=== PATIENT | male | born 1965 | race Caucasian/White ===

== ENCOUNTER → 2016-12-07 | Outpatient (REF) | payer MEDICARE ==
[~2016-12-07] MED LIST: /ESOM40CA PO; /INSULEV SC; /LINE60TA PO; ADVAIR200 INHALATION; ALBUTEROL INHALATION; ASPI81TA85 PO; ATEN50TA2 PO; ATENOLOL50 PO; ATRIPLA; ATRIPLA PO; AVANDIA4 PO; AVANDIA8 PO; CAHNTIXC PO; CHAN0.5P PO; GEMF600T; GLUC; GLUC1TOUCH TOPICAL; GLUCCOSEAC TOPICAL; GLUCOVAN PO; GLUCOVANCE; GLUCULTRA TOPICAL; INSUDET SC; INSULANT; INSULIN; JANUVIA; JANUVIA100 PO; JANUVIA50 PO; LIPI80TA PO; LIPITOR10 PO; LIPITOR40 PO; LISI10TA4; LISI5TAB PO; LISINOPR10 PO; LISINOPR20 PO; LORTAB5 PO; LOVA1CAP16 PO; LOVAZA; LOVAZA PO; MAGN400C2 PO; MOBI15TA PO; MULTIVIT PO; NEXIUM40 PO; NITR0.4S SL; NITROSTAT4 SL; NOVO70VL SC; OMACOR PO; OMEPRAZ20 PO; OSCAL PO; OXYC-208 PO; OXYC10TA12; OXYC30TA84 PO; OXYCON10 PO; OYST500T PO; PLAV75TA2 PO; PLAVIX75 PO; PROTONIX40 PO; PROVIGIL2 PO; RELAFEN PO; SITA50TAB PO; SUSTIVA PO; THERGRAN PO; TRUVTAB5 PO; VICODIN PO; VICODIN7.5 PO; VITA500047 PO; [UNRECOGNIZED DRUG - OTHER]
[2016-12-07 15:58] LABS: ALBUMIN 4.2 GM/DL (3.2-5.2); ALBUMIN/GLOBULIN RATIO 1.14 (1.00-1.93); ALKALINE PHOSPHATASE 144 U/L (45-117); ALT/SGPT 34 U/L (12-78); ANION GAP 10 MEQ/L (8-16); AST/SGOT 30 U/L (15-37); BILIRUBIN,TOTAL 0.4 MG/DL (0.2-1.0); BLOOD UREA NITROGEN 7 MG/DL (7-18); CALCIUM LEVEL 9.2 MG/DL (8.5-10.1); CARBON DIOXIDE LEVEL 29 MEQ/L (21-32); CHLORIDE LEVEL 98 MEQ/L (98-107); CHOLESTEROL LEVEL 182 MG/DL (<200); CREATININE FOR GFR 0.89 MG/DL (0.70-1.30); GLOMERULAR FILTRATION RATE > 60.0 (>56); GLUCOSE, FASTING 205 MG/DL (70-105); POTASSIUM SERUM 4.1 MEQ/L (3.5-5.1); SODIUM LEVEL 137 MEQ/L (136-145); TOTAL PROTEIN 7.9 GM/DL (6.4-8.2); TRIGLYCERIDES LEVEL 481 MG/DL (<150)
[2016-12-14 14:11] LABS: %CD3+CD4+CD8+ 1.5 % (Not Estab.); %CD3+CD4+CD8- 36.3 % (Not Estab.); %CD3+CD4-CD8+ 37.5 % (Not Estab.); %CD3+CD4-CD8- 0.7 % (Not Estab.); ABS CD3+CD4+CD8+ 42 /uL (Not Estab.); ABS CD3+CD4+CD8- 1016 /uL (Not Estab.); ABS CD3+CD4-CD8+ 1050 /uL (Not Estab.); ABS CD3+CD4-CD8- 20 /uL (Not Estab.); CD4/CD8 NYSDOH RATIO 0.97 (Not Estab.); Eosinophils 1 % (.); HCT 49.6 % (37.5-51.0); HGB 17.5 g/dL (12.6-17.7); HLA B5701-1 Negative (.); Monocytes 5 % (.); Neutrophils 63 % (.); WBC 9.2 x10E3/uL (3.4-10.8)
== END ==
LOC: M SFHCPLAZ 13:09
PROVIDERS: ATTEND Internal Medicine Infectious Disease
DX: B20 Human immunodeficiency virus [HIV] disease (principal); E08.36 Diabetes mellitus due to underlying condition with diabetic cataract; E78.2 Mixed hyperlipidemia
CPT/HCPCS: 36415; 80053; 80061; 81001; 81381; 82043; 83036; 86360; 86780; 87491; 87536; 87591; G0463

== ENCOUNTER → 2017-04-06 | Outpatient (REF) | payer MEDICARE, MEDICAID ==
[2017-04-06 18:20] LABS: ALBUMIN 4.4 GM/DL (3.2-5.2); ALBUMIN/GLOBULIN RATIO 1.26 (1.00-1.93); ALKALINE PHOSPHATASE 92 U/L (45-117); ALT/SGPT 51 U/L (12-78); ANION GAP 5 MEQ/L (8-16); AST/SGOT 38 U/L (15-37); BILIRUBIN,TOTAL 0.6 MG/DL (0.2-1.0); BLOOD UREA NITROGEN 12 MG/DL (7-18); CALCIUM LEVEL 9.4 MG/DL (8.5-10.1); CARBON DIOXIDE LEVEL 32 MEQ/L (21-32); CHLORIDE LEVEL 96 MEQ/L (98-107); CHOLESTEROL LEVEL 163 MG/DL (<200); CREATININE FOR GFR 0.89 MG/DL (0.70-1.30); GLOMERULAR FILTRATION RATE > 60.0 (>56); GLUCOSE, FASTING 274 MG/DL (70-105); POTASSIUM SERUM 4.2 MEQ/L (3.5-5.1); SODIUM LEVEL 133 MEQ/L (136-145); TOTAL PROTEIN 7.9 GM/DL (6.4-8.2); TRIGLYCERIDES LEVEL 228 MG/DL (<150)
[2017-04-10 00:06] LABS: %CD3+CD4+CD8+ 2.3 % (Not Estab.); %CD3+CD4+CD8- 35.8 % (Not Estab.); %CD3+CD4-CD8+ 37.6 % (Not Estab.); %CD3+CD4-CD8- 0.9 % (Not Estab.); ABS CD3+CD4+CD8+ 48 /uL (Not Estab.); ABS CD3+CD4+CD8- 752 /uL (Not Estab.); ABS CD3+CD4-CD8+ 790 /uL (Not Estab.); ABS CD3+CD4-CD8- 19 /uL (Not Estab.); CD4/CD8 NYSDOH RATIO 0.95 (Not Estab.); Eosinophils 2 % (.); HGB 16.4 g/dL (12.6-17.7); Monocytes 6 % (.); Neutrophils 68 % (.); WBC 8.8 x10E3/uL (3.4-10.8)
== END ==
LOC: M SFHCPLAZ 13:02
PROVIDERS: ATTEND Internal Medicine Infectious Disease
DX: B20 Human immunodeficiency virus [HIV] disease (principal); E78.2 Mixed hyperlipidemia; Z72.0 Tobacco use; E11.9 Type 2 diabetes mellitus without complications
CPT/HCPCS: 80053; 80061; 83036; 86360; 87536; G0463

== ENCOUNTER → 2017-08-05 | Outpatient (REF) | payer MEDICARE ==
[2017-08-05 16:25] LABS: ALBUMIN 4.4 GM/DL (3.2-5.2); ALBUMIN/GLOBULIN RATIO 1.33 (1.00-1.93); ALKALINE PHOSPHATASE 62 U/L (45-117); ALT/SGPT 55 U/L (12-78); ANION GAP 10 MEQ/L (8-16); AST/SGOT 37 U/L (15-37); BILIRUBIN,TOTAL 0.5 MG/DL (0.2-1.0); BLOOD UREA NITROGEN 19 MG/DL (7-18); CALCIUM LEVEL 9.4 MG/DL (8.5-10.1); CARBON DIOXIDE LEVEL 27 MEQ/L (21-32); CHLORIDE LEVEL 96 MEQ/L (98-107); CHOLESTEROL LEVEL 170 MG/DL (<200); CREATININE FOR GFR 1.23 MG/DL (0.70-1.30); GLOMERULAR FILTRATION RATE > 60.0 (>56); GLUCOSE, FASTING 298 MG/DL (70-105); POTASSIUM SERUM 4.4 MEQ/L (3.5-5.1); SODIUM LEVEL 133 MEQ/L (136-145); TOTAL PROTEIN 7.7 GM/DL (6.4-8.2); TRIGLYCERIDES LEVEL 329 MG/DL (<150)
[2017-08-11 00:06] LABS: Eosinophils 2 % (Not Estab.); HCT 46.3 % (37.5-51.0); HGB 16.2 g/dL (12.6-17.7); Monocytes 6 % (Not Estab.); Neutrophils 63 % (Not Estab.); WBC 9.5 x10E3/uL (3.4-10.8)
== END ==
LOC: M SFHCPLAZ 13:59
PROVIDERS: ATTEND Internal Medicine Infectious Disease
DX: B20 Human immunodeficiency virus [HIV] disease (principal); E78.2 Mixed hyperlipidemia; E08.36 Diabetes mellitus due to underlying condition with diabetic cataract
CPT/HCPCS: 36415; 80053; 80061; 83036; 86360; 86803; 87536; 90686; G0008; G0463

== ENCOUNTER → 2017-12-09 | Outpatient (REF) | payer MEDICARE ==
[2017-12-09 16:08] LABS: APPEARANCE, URINE CLEAR (CLEAR); BACTERIA, URINE AUTO NEGATIVE (NEGATIVE); BILIRUBIN, URINE AUTO NEGATIVE (NEGATIVE); BLOOD, URINE BLOOD NEGATIVE (NEGATIVE); COLOR, URINE YELLOW (YELLOW); GLUCOSE, URINE (UA) AUTO 3+ mg/dL (NEGATIVE); KETONE, URINE AUTO NEGATIVE (NEGATIVE); LEUKOCYTE ESTERASE, URINE AUTO NEGATIVE (NEGATIVE); NITRITE, URINE AUTO NEGATIVE (NEGATIVE); PROTEIN, URINE AUTO NEGATIVE (NEGATIVE); RBC, URINE AUTO 0 /HPF (0-3); SPECIFIC GRAVITY URINE AUTO 1.032 (1.002-1.035); SQUAMOUS EPITHELIAL CELL UR AU 0 /HPF (0-6); UROBILINOGEN, URINE AUTO 0.2 mg/dL (0.0-2.0); WBC, URINE AUTO 0 /HPF (0-3)
[2017-12-09 16:26] LABS: ALBUMIN 4.3 GM/DL (3.2-5.2); ALBUMIN/GLOBULIN RATIO 1.26 (1.00-1.93); ALKALINE PHOSPHATASE 62 U/L (45-117); ALT/SGPT 53 U/L (12-78); ANION GAP 6 MEQ/L (8-16); AST/SGOT 46 U/L (7-37); BILIRUBIN,TOTAL 0.5 MG/DL (0.2-1.0); BLOOD UREA NITROGEN 13 MG/DL (7-18); CALCIUM LEVEL 9.5 MG/DL (8.5-10.1); CARBON DIOXIDE LEVEL 29 MEQ/L (21-32); CHLORIDE LEVEL 98 MEQ/L (98-107); CHOLESTEROL LEVEL 174 MG/DL (<200); CHOLESTEROL RISK RATIO 4.833 (<5); CREATININE FOR GFR 1.32 MG/DL (0.70-1.30); GLOMERULAR FILTRATION RATE > 60.0 (>56); GLUCOSE, FASTING 267 MG/DL (70-100); HDL CHOLESTEROL 36 MG/DL (>40); NON-HDL-C 138 MG/DL; POTASSIUM SERUM 4.7 MEQ/L (3.5-5.1); SODIUM LEVEL 133 MEQ/L (136-145); TOTAL PROTEIN 7.7 GM/DL (6.4-8.2); TRIGLYCERIDES LEVEL 469 MG/DL (<150)
[2017-12-09 16:32] LABS: ESTIMATED AVERAGE GLUCOSE 220 MG/DL (60-110); HEMOGLOBIN A1c 9.3 %
[2017-12-09 18:00] LABS: CHLAMYDIA DNA AMPLIFICATION NEGATIVE (NEGATIVE); GC DNA AMPLIFICATION NEGATIVE (NEGATIVE)
[2017-12-11 14:13] LABS: % CD8 Pos Lymph 41.1 % (12.0-35.5); %CD4 Pos Lymphs 36.4 % (30.8-58.5); ABS Eosinophils 0.2 x10E3/uL (0.0-0.4); ABS Lymphs 2.8 x10E3/uL (0.7-3.1); ABS Monocytes 0.7 x10E3/uL (0.1-0.9); ABS Neutophils 5.6 x10E3/uL (1.4-7.0); Abs CD4 Helper 1019 /uL (359-1519); Abs CD8 Suppres 1151 /uL (109-897); CD4/CD8 Ratio 0.89 (0.92-3.72); Eosinophils 2 % (Not Estab.); HCT 47.4 % (37.5-51.0); HGB 16.4 g/dL (13.0-17.7); Immature Grans 0 % (Not Estab.); Lymphocytes 30 % (Not Estab.); MCH 30.3 pg (26.6-33.0); MCHC 34.6 g/dL (31.5-35.7); MCV 88 fL (79-97); Monocytes 7 % (Not Estab.); Neutrophils 61 % (Not Estab.); Platelets 207 x10E3/uL (150-379); QUANTIFERON GOLD TB Negative (Negative); RBC 5.42 x10E6/uL (4.14-5.80); RDW 13.7 % (12.3-15.4); TB Test (QFT) Antigen 0.04 IU/mL (.); TB Test (QFT) Antigen Minus Ni 0.01 IU/mL (.); TB Test (QFT) Mitogen 7.07 IU/mL (.); TB Test (QFT) Nil 0.03 IU/mL (.); WBC 9.3 x10E3/uL (3.4-10.8)
[2017-12-14 14:14] LABS: HIV-1 RNA PCR QUANT 2 LC550285 <20 copies/mL (.)
== END ==
LOC: M SFHCPLAZ 14:00
DX: B20 Human immunodeficiency virus [HIV] disease (principal); E08.36 Diabetes mellitus due to underlying condition with diabetic cataract; E11.36 Type 2 diabetes mellitus with diabetic cataract; E78.2 Mixed hyperlipidemia; I25.119 Atherosclerotic heart disease of native coronary artery with unspecified angina pectoris; M72.0 Palmar fascial fibromatosis [Dupuytren]; Z23 Encounter for immunization; Z72.0 Tobacco use
CPT/HCPCS: 80053

== ENCOUNTER → 2018-03-28 | Outpatient (REF) | payer MEDICARE ==
[2018-03-28 16:09] LABS: ANION GAP 7 MEQ/L (8-16); BLOOD UREA NITROGEN 21 MG/DL (7-18); CALCIUM LEVEL 8.7 MG/DL (8.5-10.1); CARBON DIOXIDE LEVEL 29 MEQ/L (21-32); CHLORIDE LEVEL 103 MEQ/L (98-107); CREATININE FOR GFR 1.27 MG/DL (0.70-1.30); GLOMERULAR FILTRATION RATE > 60.0 (>56); GLUCOSE, FASTING 246 MG/DL (70-100); POTASSIUM SERUM 4.8 MEQ/L (3.5-5.1); SODIUM LEVEL 139 MEQ/L (136-145)
[2018-03-28 16:28] LABS: ESTIMATED AVERAGE GLUCOSE 192 MG/DL (60-110); HEMOGLOBIN A1c 8.3 %
[2018-03-28 19:05] LABS: CREATININE, URINE 75.7 MG/DL; MALB URINE SIEMENS 12.8 MG/L; MAU/CREAT RATIO 16.9 MCG/MG (0.0-30.0)
== END ==
LOC: M LABDRAWP 15:46
DX: E11.9 Type 2 diabetes mellitus without complications (principal)
CPT/HCPCS: 83036

== ENCOUNTER → 2018-07-21 | Outpatient (REF) | payer MEDICARE ==
[2018-07-21 16:29] LABS: ESTIMATED AVERAGE GLUCOSE 214 MG/DL (60-110); HEMOGLOBIN A1c 9.1 %
[2018-07-21 16:36] LABS: ALBUMIN 4.7 GM/DL (3.2-5.2); ALBUMIN/GLOBULIN RATIO 1.42 (1.00-1.93); ALKALINE PHOSPHATASE 58 U/L (45-117); ALT/SGPT 63 U/L (12-78); ANION GAP 8 MEQ/L (8-16); AST/SGOT 65 U/L (7-37); BILIRUBIN,TOTAL 0.5 MG/DL (0.2-1.0); BLOOD UREA NITROGEN 20 MG/DL (7-18); CALCIUM LEVEL 9.8 MG/DL (8.5-10.1); CARBON DIOXIDE LEVEL 28 MEQ/L (21-32); CHLORIDE LEVEL 97 MEQ/L (98-107); CHOLESTEROL LEVEL 186 MG/DL (<200); CHOLESTEROL RISK RATIO 4.043 (<5); CREATININE FOR GFR 1.25 MG/DL (0.70-1.30); GLOMERULAR FILTRATION RATE > 60.0 (>56); GLUCOSE, FASTING 300 MG/DL (70-100); HDL CHOLESTEROL 46 MG/DL (>40); LDL CHOLESTEROL 97 MG/DL (<100); NON-HDL-C 140 MG/DL; POTASSIUM SERUM 4.9 MEQ/L (3.5-5.1); SODIUM LEVEL 133 MEQ/L (136-145); TRIGLYCERIDES LEVEL 216 MG/DL (<150)
[2018-07-27 00:12] LABS: % CD8 Pos Lymph 45.1 % (12.0-35.5); %CD4 Pos Lymphs 33.1 % (30.8-58.5); ABS Basophils 0.1 x10E3/uL (0.0-0.2); ABS Eosinophils 0.2 x10E3/uL (0.0-0.4); ABS Lymphs 2.7 x10E3/uL (0.7-3.1); ABS Monocytes 0.5 x10E3/uL (0.1-0.9); ABS Neutophils 4.1 x10E3/uL (1.4-7.0); Abs CD4 Helper 894 /uL (359-1519); Abs CD8 Suppres 1218 /uL (109-897); CD4/CD8 Ratio 0.73 (0.92-3.72); Eosinophils 3 % (Not Estab.); HCT 45.4 % (37.5-51.0); HGB 14.9 g/dL (13.0-17.7); HIV-1 RNA PCR QUANT 2 LC550285 <20 copies/mL (.); Immature Grans 0 % (Not Estab.); Lyme Disease IgG/IgM Antibodie <0.91 ISR (0.00-0.90); Lyme Disease IgM Ab Quantitati <0.80 index (0.00-0.79); Lymphocytes 35 % (Not Estab.); MCH 30.5 pg (26.6-33.0); MCHC 32.8 g/dL (31.5-35.7); MCV 93 fL (79-97); Monocytes 7 % (Not Estab.); Neutrophils 54 % (Not Estab.); Platelets 240 x10E3/uL (150-379); RBC 4.88 x10E6/uL (4.14-5.80); RDW 13.1 % (12.3-15.4); WBC 7.5 x10E3/uL (3.4-10.8)
== END ==
LOC: M SFHCPLAZ 13:58
DX: B20 Human immunodeficiency virus [HIV] disease (principal); M75.41 Impingement syndrome of right shoulder; E78.2 Mixed hyperlipidemia; E08.36 Diabetes mellitus due to underlying condition with diabetic cataract; Z23 Encounter for immunization
CPT/HCPCS: 80053

== ENCOUNTER → 2018-11-24 | Outpatient (REF) | payer MEDICARE ==
[2018-11-24 16:46] LABS: APPEARANCE, URINE CLEAR (CLEAR); BACTERIA, URINE AUTO NEGATIVE (NEGATIVE); BILIRUBIN, URINE AUTO NEGATIVE (NEGATIVE); BLOOD, URINE BLOOD NEGATIVE (NEGATIVE); COLOR, URINE YELLOW (YELLOW); GLUCOSE, URINE (UA) AUTO 3+ mg/dL (NEGATIVE); KETONE, URINE AUTO NEGATIVE (NEGATIVE); LEUKOCYTE ESTERASE, URINE AUTO NEGATIVE (NEGATIVE); NITRITE, URINE AUTO NEGATIVE (NEGATIVE); PROTEIN, URINE AUTO NEGATIVE (NEGATIVE); RBC, URINE AUTO 4 /HPF (0-3); SPECIFIC GRAVITY URINE AUTO 1.032 (1.002-1.035); SQUAMOUS EPITHELIAL CELL UR AU 0 /HPF (0-6); WBC, URINE AUTO 1 /HPF (0-3)
[2018-11-24 16:52] LABS: ALBUMIN 4.2 GM/DL (3.2-5.2); ALT/SGPT 52 U/L (12-78); BILIRUBIN,TOTAL 0.4 MG/DL (0.2-1.0); BLOOD UREA NITROGEN 15 MG/DL (7-18); CALCIUM LEVEL 8.9 MG/DL (8.5-10.1); CARBON DIOXIDE LEVEL 28 MEQ/L (21-32); CHLORIDE LEVEL 102 MEQ/L (98-107); CHOLESTEROL LEVEL 128 MG/DL (<200); CHOLESTEROL RISK RATIO 3.121 (<5); CREATININE FOR GFR 1.08 MG/DL (0.70-1.30); GLOMERULAR FILTRATION RATE > 60.0 (>56); GLUCOSE, FASTING 291 MG/DL (70-100); HDL CHOLESTEROL 41 MG/DL (>40); LDL CHOLESTEROL 59 MG/DL (<100); NON-HDL-C 87 MG/DL; POTASSIUM SERUM 4.7 MEQ/L (3.5-5.1); SODIUM LEVEL 137 MEQ/L (136-145); TOTAL PROTEIN 7.2 GM/DL (6.4-8.2); TRIGLYCERIDES LEVEL 142 MG/DL (<150)
[2018-11-24 17:16] LABS: AMPHETAMINES URINE REFLEX NEGATIVE (NEGATIVE); BARBITURATES URINE REFLEX NEGATIVE (NEGATIVE); BENZODIAZEPINES URINE REFLEX NEGATIVE (NEGATIVE); COCAINE METABOLITE URINE REFLE NEGATIVE (NEGATIVE); METHADONE URINE REFLEX NEGATIVE (NEGATIVE); OPIATES URINE REFLEX NEGATIVE (NEGATIVE); PHENCYCLIDINE URINE REFLEX NEGATIVE (NEGATIVE)
[2018-11-24 18:13] LABS: HEMOGLOBIN A1c 9.1 %
[2018-11-24 18:43] LABS: CHLAMYDIA DNA AMPLIFICATION NEGATIVE (NEGATIVE); GC DNA AMPLIFICATION NEGATIVE (NEGATIVE)
[2018-11-24 20:53] LABS: CANNABINOIDS URINE REFLEX PENDING CONFIRMATION (NEGATIVE)
[2018-11-28 14:46] LABS: Cannabinoid Positive (.); GC Carboxy THC >300 ng/mL (Cutoff=10)
[2018-11-30 00:07] LABS: % CD8 Pos Lymph 40.9 % (12.0-35.5); %CD4 Pos Lymphs 38.4 % (30.8-58.5); ABS Eosinophils 0.2 x10E3/uL (0.0-0.4); ABS Monocytes 0.4 x10E3/uL (0.1-0.9); ABS Neutophils 3.2 x10E3/uL (1.4-7.0); Abs CD4 Helper 768 /uL (359-1519); Abs CD8 Suppres 818 /uL (109-897); CD4/CD8 Ratio 0.94 (0.92-3.72); Eosinophils 4 % (Not Estab.); HCT 42.3 % (37.5-51.0); HGB 14.5 g/dL (13.0-17.7); HIV-1 RNA PCR QUANT 2 LC550285 <20 copies/mL (.); Immature Grans 0 % (Not Estab.); Lymphocytes 34 % (Not Estab.); MCH 30.9 pg (26.6-33.0); MCHC 34.3 g/dL (31.5-35.7); MCV 90 fL (79-97); Monocytes 7 % (Not Estab.); Neutrophils 54 % (Not Estab.); Platelets 213 x10E3/uL (150-379); WBC 5.9 x10E3/uL (3.4-10.8)
== END ==
LOC: M SFHCPLAZ 14:23
PROVIDERS: ATTEND Internal Medicine Infectious Disease
DX: B20 Human immunodeficiency virus [HIV] disease (principal); E78.2 Mixed hyperlipidemia; E08.36 Diabetes mellitus due to underlying condition with diabetic cataract; M25.551 Pain in right hip
CPT/HCPCS: 36415; 80053; 80061; 80307; 81001; 83036; 86360; 86480; 86780; 87491; 87536; 87591; G0463; G0480

== ENCOUNTER → 2019-03-23 | Outpatient (REF) | payer MEDICARE ==
[~2019-03-23] MED LIST changes: -/ESOM40CA PO; -/INSULEV SC; -/LINE60TA PO; +LEVE0.01 SC; +NEXI1CAP3 PO; +ZYVO100T PO
[2019-03-23 16:33] LABS: ALBUMIN 4.2 GM/DL (3.2-5.2); ALT/SGPT 38 U/L (12-78); BILIRUBIN,TOTAL 0.6 MG/DL (0.2-1.0); BLOOD UREA NITROGEN 23 MG/DL (7-18); CALCIUM LEVEL 9.8 MG/DL (8.5-10.1); CARBON DIOXIDE LEVEL 30 MEQ/L (21-32); CHLORIDE LEVEL 98 MEQ/L (98-107); CPK CREATINE PHOSPHOKINASE 197 U/L (39-308); CREATININE FOR GFR 1.32 MG/DL (0.70-1.30); GLOMERULAR FILTRATION RATE > 60.0 (>56); GLUCOSE, FASTING 295 MG/DL (70-100); POTASSIUM SERUM 4.7 MEQ/L (3.5-5.1); SODIUM LEVEL 135 MEQ/L (136-145); TOTAL PROTEIN 7.6 GM/DL (6.4-8.2)
[2019-03-23 17:15] LABS: HEMOGLOBIN A1c 9.3 %
== END ==
LOC: M SFHCPLAZ 14:19
PROVIDERS: ATTEND Internal Medicine Infectious Disease
DX: B20 Human immunodeficiency virus [HIV] disease (principal); E08.36 Diabetes mellitus due to underlying condition with diabetic cataract
CPT/HCPCS: 36415; 80053; 82550; 83036; G0463

== ENCOUNTER → 2019-06-27 | Outpatient (REF) | payer MEDICARE ==
[2019-06-27 20:26] LABS: ALBUMIN 4.1 GM/DL (3.2-5.2); ALT/SGPT 32 U/L (12-78); BILIRUBIN,TOTAL 0.5 MG/DL (0.2-1.0); BLOOD UREA NITROGEN 12 MG/DL (7-18); CALCIUM LEVEL 9.3 MG/DL (8.5-10.1); CARBON DIOXIDE LEVEL 29 MEQ/L (21-32); CHLORIDE LEVEL 101 MEQ/L (98-107); CHOLESTEROL LEVEL 127 MG/DL (<200); CREATININE FOR GFR 1.05 MG/DL (0.70-1.30); GLOMERULAR FILTRATION RATE > 60.0 (>56); GLUCOSE, FASTING 197 MG/DL (70-100); HDL CHOLESTEROL 51 MG/DL (>40); LDL CHOLESTEROL 55 MG/DL (<100); NON-HDL-C 76 MG/DL; POTASSIUM SERUM 4.1 MEQ/L (3.5-5.1); SODIUM LEVEL 137 MEQ/L (136-145); TOTAL PROTEIN 7.2 GM/DL (6.4-8.2); TRIGLYCERIDES LEVEL 107 MG/DL (<150)
[2019-06-27 21:38] LABS: HEMOGLOBIN A1c 7.5 %
[2019-07-01 00:06] LABS: % CD8 Pos Lymph 39.4 % (12.0-35.5); %CD4 Pos Lymphs 38.2 % (30.8-58.5); ABS Eosinophils 0.2 x10E3/uL (0.0-0.4); ABS Monocytes 0.4 x10E3/uL (0.1-0.9); ABS Neutophils 3.3 x10E3/uL (1.4-7.0); Abs CD4 Helper 764 /uL (359-1519); Abs CD8 Suppres 788 /uL (109-897); CD4/CD8 Ratio 0.97 (0.92-3.72); Eosinophils 4 % (Not Estab.); HCT 41.9 % (37.5-51.0); HGB 13.8 g/dL (13.0-17.7); HIV-1 RNA PCR QUANT 2 LC550285 30 copies/mL (.); HIV-1 RNA PCR QUANT 3 LC550285 1.477 (.); Immature Grans 0 % (Not Estab.); Lymphocytes 34 % (Not Estab.); MCH 29.7 pg (26.6-33.0); MCHC 32.9 g/dL (31.5-35.7); MCV 90 fL (79-97); Monocytes 7 % (Not Estab.); Neutrophils 55 % (Not Estab.); Platelets 215 x10E3/uL (150-450); RBC 4.65 x10E6/uL (4.14-5.80); RDW 13.8 % (12.3-15.4)
== END ==
LOC: M SFHCPLAZ 14:52
PROVIDERS: ATTEND Internal Medicine Infectious Disease
DX: B20 Human immunodeficiency virus [HIV] disease (principal); E08.36 Diabetes mellitus due to underlying condition with diabetic cataract; E78.2 Mixed hyperlipidemia; Z23 Encounter for immunization
CPT/HCPCS: 36415; 80053; 80061; 83036; 86360; 87536; 90471; G0463

== ENCOUNTER → 2019-11-13 | Outpatient (REF) | payer MEDICARE ==
[2019-11-13 16:05] LABS: HEMOGLOBIN A1c 8.6 %
[2019-11-13 16:06] LABS: ALBUMIN 4.6 GM/DL (3.2-5.2); ALT/SGPT 52 U/L (12-78); BILIRUBIN,TOTAL 0.6 MG/DL (0.2-1.0); BLOOD UREA NITROGEN 18 MG/DL (7-18); CALCIUM LEVEL 9.6 MG/DL (8.5-10.1); CARBON DIOXIDE LEVEL 31 MEQ/L (21-32); CHLORIDE LEVEL 100 MEQ/L (98-107); CHOLESTEROL LEVEL 124 MG/DL (<200); CHOLESTEROL RISK RATIO 2.296 (<5); CREATININE FOR GFR 1.21 MG/DL (0.70-1.30); GLOMERULAR FILTRATION RATE > 60.0 (>56); GLUCOSE, FASTING 146 MG/DL (70-100); HDL CHOLESTEROL 54 MG/DL (>40); LDL CHOLESTEROL 44 MG/DL (<100); NON-HDL-C 70 MG/DL; POTASSIUM SERUM 4.3 MEQ/L (3.5-5.1); SODIUM LEVEL 136 MEQ/L (136-145); TOTAL PROTEIN 8.2 GM/DL (6.4-8.2); TRIGLYCERIDES LEVEL 130 MG/DL (<150)
[2019-11-13 16:52] LABS: HEPATITIS C VIRUS ABY INDEX < 0.0 INDEX (<0.8)
[2019-11-13 17:48] LABS: APPEARANCE, URINE HAZY (CLEAR); BACTERIA, URINE AUTO NEGATIVE (NEGATIVE); BILIRUBIN, URINE AUTO NEGATIVE (NEGATIVE); BLOOD, URINE BLOOD NEGATIVE (NEGATIVE); COLOR, URINE AMBER (YELLOW); GLUCOSE, URINE (UA) AUTO 3+ mg/dL (NEGATIVE); KETONE, URINE AUTO TRACE mg/dL (NEGATIVE); LEUKOCYTE ESTERASE, URINE AUTO NEGATIVE (NEGATIVE); MUCUS, URINE SMALL (NEGATIVE); NITRITE, URINE AUTO NEGATIVE (NEGATIVE); PROTEIN, URINE AUTO 2+ mg/dL (NEGATIVE); RBC, URINE AUTO 4 /HPF (0-3); SPECIFIC GRAVITY URINE AUTO 1.031 (1.002-1.035); SQUAMOUS EPITHELIAL CELL UR AU 0 /HPF (0-6); WBC, URINE AUTO 1 /HPF (0-3)
[2019-11-13 18:30] LABS: MAU/CREAT RATIO 325.2 MCG/MG (0.0-30.0)
[2019-11-13 22:39] LABS: CHLAMYDIA DNA AMPLIFICATION NEGATIVE (NEGATIVE); GC DNA AMPLIFICATION NEGATIVE (NEGATIVE)
[2019-11-17 00:06] LABS: % CD8 Pos Lymph 38.3 % (12.0-35.5); %CD4 Pos Lymphs 39.1 % (30.8-58.5); ABS Eosinophils 0.1 x10E3/uL (0.0-0.4); ABS Lymphs 1.7 x10E3/uL (0.7-3.1); ABS Monocytes 0.4 x10E3/uL (0.1-0.9); ABS Neutophils 3.2 x10E3/uL (1.4-7.0); Abs CD4 Helper 665 /uL (359-1519); Abs CD8 Suppres 651 /uL (109-897); CD4/CD8 Ratio 1.02 (0.92-3.72); Eosinophils 1 % (Not Estab.); HCT 42.2 % (37.5-51.0); HGB 14.1 g/dL (13.0-17.7); HIV-1 RNA PCR QUANT 2 LC550285 <20 copies/mL (.); Immature Grans 0 % (Not Estab.); Lymphocytes 32 % (Not Estab.); MCH 28.6 pg (26.6-33.0); MCHC 33.4 g/dL (31.5-35.7); MCV 86 fL (79-97); Monocytes 7 % (Not Estab.); Neutrophils 60 % (Not Estab.); Platelets 309 x10E3/uL (150-450); RBC 4.93 x10E6/uL (4.14-5.80); RDW 14.4 % (11.6-15.4); WBC 5.4 x10E3/uL (3.4-10.8)
== END ==
LOC: M SFHCPLAZ 14:26
PROVIDERS: ATTEND Internal Medicine Infectious Disease
DX: B20 Human immunodeficiency virus [HIV] disease (principal); E78.2 Mixed hyperlipidemia; E08.36 Diabetes mellitus due to underlying condition with diabetic cataract; Z79.899 Other long term (current) drug therapy
CPT/HCPCS: 36415; 80053; 80061; 81001; 82043; 82306; 83036; 86360; 86780; 86803; 87491; 87536; 87591; G0463

== ENCOUNTER → 2020-04-01 | Outpatient (REF) | payer MEDICARE ==
[2020-04-01 16:03] LABS: ALBUMIN 4.1 GM/DL (3.2-5.2); ALT/SGPT 47 U/L (12-78); BILIRUBIN,TOTAL 0.4 MG/DL (0.2-1.0); BLOOD UREA NITROGEN 17 MG/DL (7-18); CALCIUM LEVEL 9.6 MG/DL (8.5-10.1); CARBON DIOXIDE LEVEL 33 MEQ/L (21-32); CHLORIDE LEVEL 102 MEQ/L (98-107); CHOLESTEROL LEVEL 130 MG/DL (<200); CHOLESTEROL RISK RATIO 2.826 (<5); CREATININE FOR GFR 1.26 MG/DL (0.70-1.30); GLOMERULAR FILTRATION RATE > 60.0 (>56); GLUCOSE, FASTING 210 MG/DL (70-100); HDL CHOLESTEROL 46 MG/DL (>40); LDL CHOLESTEROL 56 MG/DL (<100); NON-HDL-C 84 MG/DL; POTASSIUM SERUM 4.9 MEQ/L (3.5-5.1); SODIUM LEVEL 134 MEQ/L (136-145); TOTAL PROTEIN 7.7 GM/DL (6.4-8.2); TRIGLYCERIDES LEVEL 140 MG/DL (<150)
[2020-04-01 16:14] LABS: HEMOGLOBIN A1c 9.3 %
[2020-04-01 16:29] LABS: CREATININE, URINE 84.4 MG/DL; MAU/CREAT RATIO 214.4 MCG/MG (0.0-30.0)
[2020-04-04 15:17] LABS: % CD8 Pos Lymph 43.4 % (12.0-35.5); %CD4 Pos Lymphs 33.2 % (30.8-58.5); ABS Basophils 0.1 x10E3/uL (0.0-0.2); ABS Eosinophils 0.2 x10E3/uL (0.0-0.4); ABS Lymphs 1.9 x10E3/uL (0.7-3.1); ABS Monocytes 0.6 x10E3/uL (0.1-0.9); ABS Neutophils 3.6 x10E3/uL (1.4-7.0); Abs CD4 Helper 631 /uL (359-1519); Abs CD8 Suppres 825 /uL (109-897); CD4/CD8 Ratio 0.76 (0.92-3.72); Eosinophils 3 % (Not Estab.); HCT 41.6 % (37.5-51.0); HGB 13.7 g/dL (13.0-17.7); HIV-1 RNA PCR QUANT 2 LC550285 <20 copies/mL (.); Immature Grans 0 % (Not Estab.); Lymphocytes 31 % (Not Estab.); MCH 29.9 pg (26.6-33.0); MCHC 32.9 g/dL (31.5-35.7); MCV 91 fL (79-97); Monocytes 9 % (Not Estab.); Neutrophils 56 % (Not Estab.); Platelets 233 x10E3/uL (150-450); RBC 4.58 x10E6/uL (4.14-5.80); RDW 12.8 % (11.6-15.4); WBC 6.3 x10E3/uL (3.4-10.8)
== END ==
LOC: M SFHCPLAZ 12:41
PROVIDERS: ATTEND Internal Medicine Infectious Disease
DX: B20 Human immunodeficiency virus [HIV] disease (principal); E08.36 Diabetes mellitus due to underlying condition with diabetic cataract
CPT/HCPCS: 36415; 80053; 80061; 82043; 83036; 86360; 87536; G0463

== ENCOUNTER → 2020-07-30 | Outpatient (REF) | payer MEDICARE ==
[2020-07-30 18:35] LABS: HEMOGLOBIN A1c 10.4 %
[2020-07-30 18:43] LABS: ALBUMIN 3.8 GM/DL (3.2-5.2); ALT/SGPT 67 U/L (12-78); BILIRUBIN,TOTAL 0.5 MG/DL (0.2-1.0); BLOOD UREA NITROGEN 17 MG/DL (7-18); CALCIUM LEVEL 9.3 MG/DL (8.5-10.1); CARBON DIOXIDE LEVEL 27 MEQ/L (21-32); CHLORIDE LEVEL 97 MEQ/L (98-107); CHOLESTEROL LEVEL 331 MG/DL (<200); CREATININE FOR GFR 1.61 MG/DL (0.70-1.30); GLUCOSE, FASTING 519 MG/DL (70-100); HDL CHOLESTEROL 33 MG/DL (>40); NON-HDL-C 298 MG/DL; POTASSIUM SERUM 5.6 MEQ/L (3.5-5.1); SODIUM LEVEL 129 MEQ/L (136-145); TOTAL PROTEIN 7.4 GM/DL (6.4-8.2); TRIGLYCERIDES LEVEL 844 MG/DL (<150)
[2020-08-02 13:07] LABS: % CD8 Pos Lymph 45.2 % (12.0-35.5); ABS Eosinophils 0.1 x10E3/uL (0.0-0.4); ABS Lymphs 1.6 x10E3/uL (0.7-3.1); ABS Monocytes 0.4 x10E3/uL (0.1-0.9); ABS Neutophils 2.8 x10E3/uL (1.4-7.0); Abs CD4 Helper 576 /uL (359-1519); Abs CD8 Suppres 723 /uL (109-897); Eosinophils 2 % (Not Estab.); HCT 42.3 % (37.5-51.0); HGB 13.9 g/dL (13.0-17.7); HIV-1 RNA PCR QUANT 2 LC550285 <20 copies/mL (.); Immature Grans 0 % (Not Estab.); Lymphocytes 32 % (Not Estab.); MCHC 32.9 g/dL (31.5-35.7); MCV 91 fL (79-97); Monocytes 9 % (Not Estab.); Neutrophils 56 % (Not Estab.); Platelets 242 x10E3/uL (150-450); RBC 4.63 x10E6/uL (4.14-5.80); RDW 12.5 % (11.6-15.4); WBC 4.9 x10E3/uL (3.4-10.8)
== END ==
LOC: M SFHCPLAZ 13:52
PROVIDERS: ATTEND Internal Medicine Infectious Disease
DX: B20 Human immunodeficiency virus [HIV] disease (principal); E78.2 Mixed hyperlipidemia; E08.36 Diabetes mellitus due to underlying condition with diabetic cataract; Z23 Encounter for immunization
CPT/HCPCS: 36415; 80053; 80061; 83036; 86360; 87536; 90682; G0008; G0463

== ENCOUNTER → 2020-09-19 | Outpatient (CLI) | payer MEDICARE, MEDICAID ==
--- NOTE | 2020-09-19 15:43 | REP ---
INDICATION: TOBACCO USE. COMPARISON: None. TECHNIQUE: Low-dose screening chest CT. 3 mm lung window only axial images. FINDINGS: Preliminary digital director physical radiograph is unremarkable. Vascular calcification is noted along the course of the coronary arteries and in the aortic arch. There is a peripheral calcified granuloma in the right lower lobe adjacent to the pleura. No significant pulmonary nodule is seen. No mass lesion or infiltrate is seen. No endobronchial disease is seen. Study is otherwise unremarkable. IMPRESSION: Lung RADS category 1 findings. Repeat screening study recommended in 1 year. <Electronically signed by Tomer Hillman > 09/19/20 [id number]
== END ==
LOC: M RAD 13:34
PROVIDERS: ATTEND Internal Medicine Infectious Disease
DX: F17.210 Nicotine dependence, cigarettes, uncomplicated (principal); B20 Human immunodeficiency virus [HIV] disease

== ENCOUNTER → 2020-12-16 | Outpatient (REF) | payer MEDICARE ==
[2020-12-16 15:39] LABS: HEMOGLOBIN A1c 10.8 %
[2020-12-16 15:43] LABS: ALBUMIN 3.9 GM/DL (3.2-5.2); ALT/SGPT 37 U/L (12-78); BILIRUBIN,TOTAL 0.7 MG/DL (0.2-1.0); BLOOD UREA NITROGEN 25 MG/DL (7-18); CALCIUM LEVEL 9.2 MG/DL (8.5-10.1); CARBON DIOXIDE LEVEL 28 MEQ/L (21-32); CHLORIDE LEVEL 98 MEQ/L (98-107); CHOLESTEROL LEVEL 160 MG/DL (<200); CHOLESTEROL RISK RATIO 4.848 (<5); CREATININE FOR GFR 1.62 MG/DL (0.70-1.30); GLOMERULAR FILTRATION RATE 47.5 (>56); GLUCOSE, FASTING 363 MG/DL (70-100); HDL CHOLESTEROL 33 MG/DL (>40); NON-HDL-C 127 MG/DL; POTASSIUM SERUM 5.3 MEQ/L (3.5-5.1); SODIUM LEVEL 132 MEQ/L (136-145); TOTAL PROTEIN 7.2 GM/DL (6.4-8.2); TRIGLYCERIDES LEVEL 831 MG/DL (<150)
[2020-12-16 15:48] LABS: AMPHETAMINES URINE REFLEX NEGATIVE (NEGATIVE); BARBITURATES URINE REFLEX NEGATIVE (NEGATIVE); BENZODIAZEPINES URINE REFLEX NEGATIVE (NEGATIVE); COCAINE METABOLITE URINE REFLE NEGATIVE (NEGATIVE); METHADONE URINE REFLEX NEGATIVE (NEGATIVE); PHENCYCLIDINE URINE REFLEX NEGATIVE (NEGATIVE)
[2020-12-16 16:43] LABS: CANNABINOIDS URINE REFLEX PENDING CONFIRMATION (NEGATIVE); OPIATES URINE REFLEX PENDING CONFIRMATION (NEGATIVE)
[2020-12-19 18:11] LABS: Cannabinoid Positive (.); GC Carboxy THC 48 ng/mL (Cutoff=10); Opiates Negative (Cutoff=200)
[2020-12-19 20:41] LABS: % CD8 Pos Lymph 44.9 % (12.0-35.5); ABS Basophils 0.1 x10E3/uL (0.0-0.2); ABS Eosinophils 0.2 x10E3/uL (0.0-0.4); ABS Lymphs 1.8 x10E3/uL (0.7-3.1); ABS Monocytes 0.5 x10E3/uL (0.1-0.9); Abs CD4 Helper 594 /uL (359-1519); Abs CD8 Suppres 808 /uL (109-897); CD4/CD8 Ratio 0.73 (0.92-3.72); Eosinophils 2 % (Not Estab.); HCT 44.4 % (37.5-51.0); HGB 14.2 g/dL (13.0-17.7); HIV-1 RNA PCR QUANT 2 LC550285 40 copies/mL (.); HIV-1 RNA PCR QUANT 3 LC550285 1.602 (.); Immature Grans 0 % (Not Estab.); Lymphocytes 24 % (Not Estab.); MCH 29.3 pg (26.6-33.0); MCV 92 fL (79-97); Monocytes 6 % (Not Estab.); Neutrophils 67 % (Not Estab.); Platelets 234 x10E3/uL (150-450); RBC 4.84 x10E6/uL (4.14-5.80); WBC 7.5 x10E3/uL (3.4-10.8)
== END ==
LOC: M SFHCPLAZ 13:10
PROVIDERS: ATTEND Internal Medicine Infectious Disease
DX: B20 Human immunodeficiency virus [HIV] disease (principal); E78.2 Mixed hyperlipidemia; E08.36 Diabetes mellitus due to underlying condition with diabetic cataract; S82.892S Other fracture of left lower leg, sequela; Z79.899 Other long term (current) drug therapy
CPT/HCPCS: 36415; 80053; 80061; 80307; 83036; 86360; 86780; 87490; 87536; 87590; G0463; G0480

== ENCOUNTER → 2022-03-13 | Outpatient (CLI) | payer MEDICARE, MEDICAID | LOC: M SOG 08:44 | PROVIDERS: ATTEND Orthopaedic Surgery | DX: M25.551 Pain in right hip (principal) ==

== ENCOUNTER → 2024-03-27 | Outpatient (CLI) | payer MEDICARE, MEDICAID ==
[2024-03-27 13:04] LABS: HEMOGLOBIN A1c 7.9 % (4.0-6.0)
[2024-03-27 13:12] LABS: ALBUMIN 4.1 G/DL (3.2-5.2); BILIRUBIN,TOTAL 0.4 MG/DL (0.3-1.2); CALCIUM LEVEL 10.2 MG/DL (8.5-10.1); CREATININE FOR GFR 1.51 MG/DL (0.70-1.30); POTASSIUM SERUM 5.4 MMOL/L (3.5-5.1); TOTAL PROTEIN 7.6 G/DL (5.7-8.2)
[2024-03-28 10:09] LABS: % CD4+ LYMPHS 31.9 % (30.8-58.5); ABSOLUTE CD4 HELPER 638 /uL (359-1519); BASOPHILS 1 % (Not Estab.); BASOPHILS ABSOLUTE 0.1 x10E3/uL (0.0-0.2); EOSINOPHILS 4 % (Not Estab.); EOSINOPHILS ABSOLUTE 0.3 x10E3/uL (0.0-0.4); HCT 44.9 % (37.5-51.0); HGB 14.4 g/dL (13.0-17.7); LYMPHOCYTES 25 % (Not Estab.); MCH 28.6 pg (26.6-33.0); MCHC 32.1 g/dL (31.5-35.7); MCV 89 fL (79-97); MONOCYTES 7 % (Not Estab.); MONOCYTES ABSOLUTE 0.6 x10E3/uL (0.1-0.9); NEUTROPHILS 63 % (Not Estab.); NEUTROPHILS ABSOLUTE 5.2 x10E3/uL (1.4-7.0); PLT 271 x10E3/uL (150-450); RBC 5.04 x10E6/uL (4.14-5.80); RDW 13.5 % (11.6-15.4); WBC 8.1 x10E3/uL (3.4-10.8)
== END ==
LOC: M PLALAB 11:27
PROVIDERS: ATTEND Internal Medicine Infectious Disease
DX: B20 Human immunodeficiency virus [HIV] disease (principal); E08.36 Diabetes mellitus due to underlying condition with diabetic cataract

== ENCOUNTER → 2025-01-30 | Outpatient (REF) | payer MEDICARE ==
[2025-01-30 15:37] LABS: ALBUMIN 3.3 G/DL (3.2-5.2); ALKALINE PHOSPHATASE 110 U/L (40-129); ALT/SGPT 60 U/L (7.0-40); AST/SGOT 61 U/L (<34); BILIRUBIN,TOTAL 0.5 MG/DL (0.3-1.2); BLOOD UREA NITROGEN 18 MG/DL (9-23); CALCIUM LEVEL 9.3 MG/DL (8.5-10.1); CARBON DIOXIDE LEVEL 28 MMOL/L (20-31); CHLORIDE LEVEL 99 MMOL/L (98-107); CREATININE FOR GFR 1.31 MG/DL (0.70-1.30); GLOMERULAR FILTRATION RATE 63.1 (>56); GLUCOSE, FASTING 379 MG/DL (60-100); POTASSIUM SERUM 5.1 MMOL/L (3.5-5.1); SODIUM LEVEL 133 MMOL/L (136-145); TOTAL PROTEIN 7.1 G/DL (5.7-8.2)
[2025-01-30 16:11] LABS: HEPATITIS C VIRUS ABY INDEX 0.05 INDEX (<0.8)
== END ==
LOC: M SFHCPLAZ 13:31
PROVIDERS: ATTEND Internal Medicine Infectious Disease
DX: M54.41 Lumbago with sciatica, right side (principal); B20 Human immunodeficiency virus [HIV] disease; Z11.3 Encounter for screening for infections with a predominantly sexual mode of transmission; Z72.89 Other problems related to lifestyle

== ENCOUNTER → 2025-08-23 | Outpatient (CLI) | payer MEDICARE, MEDICAID ==
[2025-08-23 15:35] LABS: AMORPHOUS SEDIMENT SMALL (NEGATIVE); APPEARANCE, URINE CLOUDY (CLEAR); BACTERIA, URINE AUTO NEGATIVE (NEGATIVE); BILIRUBIN, URINE AUTO NEGATIVE (NEGATIVE); BLOOD, URINE BLOOD 1+ (NEGATIVE); CALCIUM OXALATE CRYSTALS LARGE; GLUCOSE, URINE (UA) AUTO 3+ mg/dL (NEGATIVE); GRANULAR CAST, URINE AUTO 7 /LPF; KETONE, URINE AUTO NEGATIVE (NEGATIVE); LEUKOCYTE ESTERASE, URINE AUTO NEGATIVE (NEGATIVE); MUCUS, URINE SMALL (NEGATIVE); NITRITE, URINE AUTO NEGATIVE (NEGATIVE); PROTEIN, URINE AUTO 3+ mg/dL (NEGATIVE); RBC, URINE AUTO 5 /HPF (0-3); SPECIFIC GRAVITY URINE AUTO 1.028 (1.002-1.035); SQUAMOUS EPITHELIAL CELL UR AU 1 /HPF (0-6); UROBILINOGEN, URINE AUTO 4.0 mg/dL (0.0-2.0); WBC, URINE AUTO 3 /HPF (0-3)
[2025-08-23 15:45] LABS: ALT/SGPT 45.0 U/L (7.0-40); AST/SGOT 53.0 U/L (<34); CALCIUM LEVEL 9.2 MG/DL (8.5-10.1); CARBON DIOXIDE LEVEL 29.0 MMOL/L (20-31); CHLORIDE LEVEL 100.0 MMOL/L (98-107); CREATININE FOR GFR 1.3 MG/DL (0.70-1.30); GLOMERULAR FILTRATION RATE 63.7 (>56); POTASSIUM SERUM 4.3 MMOL/L (3.5-5.1); SODIUM LEVEL 138.0 MMOL/L (136-145)
[2025-08-23 15:59] LABS: BARBITURATES URINE REFLEX NEGATIVE (NEGATIVE); COCAINE METABOLITE URINE REFLE NEGATIVE (NEGATIVE); METHADONE URINE REFLEX NEGATIVE (NEGATIVE); PHENCYCLIDINE URINE REFLEX NEGATIVE (NEGATIVE)
[2025-08-23 16:00] LABS: AMPHETAMINES URINE REFLEX NEGATIVE (NEGATIVE); BENZODIAZEPINES URINE REFLEX NEGATIVE (NEGATIVE); CANNABINOIDS URINE REFLEX NEGATIVE (NEGATIVE)
[2025-08-23 16:31] LABS: ESTIMATED AVERAGE GLUCOSE 280.0 MG/DL (60-110)
[2025-08-23 17:07] LABS: OPIATES URINE REFLEX PENDING CONFIRMATION (NEGATIVE)
[2025-08-25 16:37] LABS: % CD4 34 % (30-61); %CD8 44 % (12-42); ABSOLUTE CD4 CELLS 458 cells/uL (490-1740); ABSOLUTE CD8 CELLS 599 cells/uL (180-1170); ABSOLUTE LYMPHOCYTES 1356 cells/uL (850-3900); CD4 CD8 RATIO 0.77 (0.86-5.00)
[2025-08-26 21:44] LABS: HIV-1 RNA PCR QUANT 2 NOT DETECTED copies/mL (NOT DETECTED); HIV-1 RNA PCR QUANT 3 NOT DETECTED (NOT DETECTED)
== END ==
LOC: M PLALAB 12:32
PROVIDERS: ATTEND Internal Medicine Infectious Disease
DX: B20 Human immunodeficiency virus [HIV] disease (principal); E08.36 Diabetes mellitus due to underlying condition with diabetic cataract; M54.41 Lumbago with sciatica, right side; Z79.899 Other long term (current) drug therapy